=== PATIENT | male | born 1975 | race Caucasian/White ===

== ENCOUNTER 2017-04-25 13:59 | Emergency (ER) | payer MEDICAID ==
[~2017-04-25] VITALS: Ht 182.9 cm; Wt 80.0 kg
[~2017-04-25 13:59] MED LIST: CYCL1TAB29 PO; MEDR4PAK PO; PERC10TA27 PO
[2017-04-25 14:00] VITALS: BP 148/85; PULSE 68; RESP 16; TEMP 98.3; O2SAT 97
--- NOTE | 2017-04-25 14:32 | PD ---
HPI Chief Complaint: Pain: Acute or Chronic Time Seen by Provider: 14:32 Travel History International Travel<30 days: No Contact w/Intl Traveler<30days: No Traveled to known affect area: No History of Present Illness HPI 41-year-old male presents to emergency Department with gradual and worsening left anterior shoulder pain. Patient states he did some yard work Monday at his mom's house which didn't seem to bother at the time but since yesterday's had increasing pain and stiffness in the left anterior shoulder. Patient has difficulty lifting the arm over his head or rotating his arm laterally. He denies any neck pain, weakness, numbness, or tingling. His pain at rest his prostate 4/10, with certain movements is 9 out of 10. No history of previous injury to this area before. No known drug allergies. PFSH Past Medical History Asthma: No Blood Disorders: No Cancer: No Cardiovascular Problems: No COPD: No Diabetes: No Endocrine: No Genitourinary: No Hepatitis: No Hypertension: No Immune Disorder: No Musculoskeletal: No Neurologic: No Respiratory: Yes (SPONT. LEFT PNEMOTHORAX, CHEST TUBE 1995) Pancreatitis: No Past Surgical History Abdominal Surgery: No Appendectomy: No Cardiac Surgery: No Cholecystectomy: No Ear Surgery: No Endocrine Surgery: No Eye Surgery: No Genitourinary Surgery: No Gynecologic Surgery: No Oral Surgery: No Thoracic Surgery: No Social History Alcohol Use: Yes (OCC.) Tobacco Use: Yes (2/3 CIGARETTES/DAY) Substance Use: No Allergies-Medications (Allergen,Severity, Reaction): Coded Allergies: No Known Allergies (Unverified , 10/25/16) Reported Meds & Prescriptions Reported Meds & Active Scripts Active Percocet (Oxycodone-Acetaminophen) 10-325 mg Tab 1 Tab PO TID PRN Flexeril (Cyclobenzaprine HCl) 10 Mg Tab 10 Mg PO TID PRN Medrol Dosepak (Methylprednisolone) 4 Mg Dspk 4 Mg PO DIRECTED Per Pharmacist direction Review of Systems Except as stated in HPI: all other systems reviewed are Neg General / Constitutional: No: Fever Eyes: No: Visual changes HENT: No: Headaches Cardiovascular: No: Chest Pain or Discomfort Respiratory: No: Shortness of Breath Gastrointestinal: No: Abdominal Pain Genitourinary: No: Dysuria Musculoskeletal: No: Pain Skin: No Rash Neurologic: No: Weakness Psychiatric: No: Depression Endocrine: No: Polydipsia Hematologic/Lymphatic: No: Easy Bruising Physical Exam Narrative GENERAL: Patient appears in mild distress. SKIN: Warm and dry. Normal color. Normal turgor. No rash. No abrasions or open wounds. HEAD: Atraumatic. Normocephalic. EYES: Pupils equal and round. No scleral icterus. No injection or drainage. ENT: No nasal bleeding or discharge. Mucous membranes pink and moist. Pharynx is clear. NECK: Trachea midline. No bony tenderness or step-off. Supple without tenderness. CARDIOVASCULAR: Regular rate and rhythm. RESPIRATORY: No accessory muscle use. Clear to auscultation. Breath sounds equal bilaterally. MUSCULOSKELETAL: Extremities without clubbing, cyanosis, or edema. No obvious deformities. Patient has limited range of motion of the shoulder consistent with an anterior rotator cuff tendinitis. He has point tenderness in the anterior deltoid region. Pain is worse with lifting the hand above his head, and rotating it laterally. He has no weakness. NEUROLOGICAL: Awake and alert. No obvious cranial nerve deficits. Motor grossly within normal limits. Five out of 5 muscle strength in the arms and legs. Normal speech. PSYCHIATRIC: Appropriate mood and affect; insight and judgment normal. Data Data Last Documented VS Vital Signs Date Time Temp Pulse Resp B/P Pulse Ox O2 Delivery O2 Flow Rate FiO2 04/25/17 14:00 98.3 68 16 148/85 97 Room Air MDM Medical Decision Making Medical Screen Exam Complete: Yes Emergency Medical Condition: Yes Differential Diagnosis Left shoulder strain. Rotator cuff tendinitis. Partial rotator cuff tear. Narrative Course Patient is medically stable at time of exam. Radiographic imaging is not felt warranted at this time. Patient is given prednisone 60 mg by mouth now. Patient is continued on prednisone 20 mg twice a day 7 days. Patient is given Norflex 100 mg daily at bedtime #10. Patient continues extra strength Tylenol as well for pain. Patient is use ice and gentle stretching as discussed. Work note with restrictions is given for 1 week. Patient follow with his primary care physician or return to the emergency department as needed. Diagnosis Primary Impression: Tendinitis of left rotator cuff Referrals: Primary Care Physician Patient Instructions: Exercises for Internal and External Shoulder Rotation (ED ), Exercises for Shoulder Abduction and Adduction (ED), Exercises for Shoulder Flexion and Extension (ED), General Instructions, Rotator Cuff Tendinitis (ED) Departure Forms: Work Release Enter return to work date: Apr 26, 2017 Special Instructions: Limited use of left arm and shoulder 1 week. Additional Instructions: Radiographic imaging is not felt warranted at this time. Patient is given prednisone 60 mg by mouth now. Patient is continued on prednisone 20 mg twice a day 7 days. Patient is given Norflex 100 mg daily at bedtime #10. Patient continues extra strength Tylenol as well for pain. Patient is use ice and gentle stretching as discussed. Work note with restrictions is given for 1 week. Patient follow with his primary care physician or return to the emergency department as needed. Med/Other Pt SpecificInfo: Prescription(s) given Disposition: 01 DISCHARGE HOME Condition: Stable Jeovany Lemus Apr 25, 2017 14:32
[2017-04-25] MEDS ORDERED: ORPH100T99 PO (14:41)
[2017-04-25] MEDS ORDERED: PRED20 PO (14:41)
[2017-04-25] MEDS ORDERED: predniSONE 20 MG TAB PO ONE (14:45)
== END 2017-04-25 15:10 | disposition home or self-care (01) ==
LOC: NEPK 13:59
DX: M77.8 Other enthesopathies, not elsewhere classified (principal); Z72.0 Tobacco use; Z87.09 Personal history of other diseases of the respiratory system
CPT/HCPCS: 99284; J7512